=== PATIENT | female | born 1945 | race Caucasian/White ===

== ENCOUNTER 2023-05-23 12:20 | Emergency (ER) | payer OTHER, MEDICARE, SELFPAY ==
[2023-05-23 12:47] VITALS: BP 149/103; PULSE 57; RESP 16; TEMP 36.8; O2SAT 97; BMI 33.0
--- NOTE | 2023-05-23 12:52 | XR_ITS ---
The [address] [address] Patient Name: NITISH MERIDA MRN: [id number] date: 1945 Sex: F Assigned Patient Location: ED.MAIN Current Patient Location: Accession/Order Number: [id number] Exam Date: 05/23/2023 13:53 Report Date: 05/23/2023 14:16 At the request of: SUSANA HELTON Procedure: XR hand RT min 3V EXAM: XR hand RT min 3V HISTORY: pain COMPARISON: None. FINDINGS: 3 radiographs of the right hand were obtained. There is a mildly displaced oblique fracture to the fifth proximal phalanx. Margins of this fracture appear corticated, suggestive of a subacute or chronic fracture. Soft tissue swelling to the fifth digit. Moderate to severe degenerative changes to the right hand. Several ossific calcifications adjacent to the first carpal-metacarpal joint, likely degenerative ossicles. XR/XR hand RT min 3V IMPRESSION: Mildly displaced oblique fracture to the fifth proximal phalanx. This fracture appears chronic or subacute. Correlate with any recent trauma to the fifth digit. No acute fracture to the fourth digit. Electronically authenticated by: KALI PASTOR Date: 05/23/2023 14:16
--- NOTE | 2023-05-23 13:58 | PC.NURSE ---
bleeding controlled and bruising on and around injury. ice pack in place
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
== END 2023-05-23 14:56 | disposition home or self-care (01) ==
PROVIDERS: Emergency Provider Emergency Medicine; PCP Family Medicine
DX: S61.214A Laceration without foreign body of right ring finger without damage to nail, initial encounter (principal); S62.616A Displaced fracture of proximal phalanx of right little finger, initial encounter for closed fracture; V43.52XA Car driver injured in collision with other type car in traffic accident, initial encounter; W22.11XA Striking against or struck by driver side automobile airbag, initial encounter
CPT/HCPCS: 12001; 29130; 73130; 99284